=== PATIENT | female | born 1995 | race Caucasian/White ===

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

== ENCOUNTER 2019-07-12 09:18 | Emergency (ER) | payer BC, MEDICAID ==
[~2019-07-12] VITALS: Ht 152.4 cm; Wt 40.0 kg
[2019-07-12 09:25] VITALS: BP 104/76
--- NOTE | 2019-07-12 09:39 | NUR ---
DR. MURPHY EVALUATING PT AT BEDSIDE.
--- NOTE | 2019-07-12 09:41 | NUR ---
23F C/O RIGHT-SIDED LBP X 3 DAYS. DENIES INJURY, DYSURIA, FEVER/CHILLS, URGENCY, FREQUENCY. STATES HAS BEEN VOMITING FOR THE LAST 4 NIGHTS. STATES MILD NAUSEA AT THIS TIME. LUNGS CTAB. RRR. NORMOACTIVE BS. 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
--- NOTE | 2019-07-12 09:51 | NUR ---
DR. MURPHY SPEAKING WITH PT AT BEDSIDE
--- NOTE | 2019-07-12 10:20 | NUR ---
OBTAINED BLOOD DRAW.
--- NOTE | 2019-07-12 10:31 | NUR ---
Blood samples walked to lab.
[2019-07-12 10:39] LABS: BASOPHILS # (AUTO) 0.1 K/uL (0.00-0.22); BASOPHILS % (AUTO) 0.5 % (0.0-2.0); EOSINOPHILS % (AUTO) 0.5 % (0.0-4.0); HEMATOCRIT 38.8 % (36-48); HEMOGLOBIN 12.4 g/dL (12.0-16.0); LYMPHOCYTES % (AUTO) 20.2 % (20.5-51.1); MEAN CORPUSCULAR HEMOGLOBIN 24 pg (27-31); MEAN CORPUSCULAR HGB CONC 32 g/dL (33-37); MEAN CORPUSCULAR VOLUME 75.8 fL (80-94); MONOCYTES # (AUTO) 0.7 K/uL (0.8-1.0); MONOCYTES % (AUTO) 6.9 % (1.7-9.3); NEUTROPHILS # (AUTO) 7.1 K/uL (1.8-7.7); NEUTROPHILS % (AUTO) 71.9 % (42.2-75.2); PLATELET COUNT (AUTO) 216 K/uL (140-450); RED BLOOD CELL COUNT(AUTO) 5.11 MIL/uL (4.20-5.40); RED CELL DISTRIBUTION WIDTH 14.3 % (11.6-13.7); WHITE BLOOD COUNT (AUTO) 9.8 K/uL (4.8-10.8)
--- NOTE | 2019-07-12 10:42 | NUR ---
Ultrasound at bedside.
[2019-07-12 11:21] LABS: BILIRUBIN,URINE NEGATIVE (NEGATIVE); BLOOD, URINE TRACE-I (NEGATIVE); COLOR,URINE YELLOW (YELLOW); LEUKOCYTE ESTERASE ,URINE NEGATIVE (NEGATIVE); NITRITE, URINE NEGATIVE (NEGATIVE); PH,URINE 5.5 (5.0-9.0); UGLUCOSE NEGATIVE (NEGATIVE)
[2019-07-12 11:28] LABS: APPEARANCE,URINE SLIGHTLY HAZY (CLEAR); RBC,URINE 0-5 /HPF (0-5); WBC,URINE 0-5 /HPF (0-5)
--- NOTE | 2019-07-12 11:31 | NUR ---
PT RESTING IN BED, DENIES PAIN AT THIS TIME. FAMILY MEMBER AT BEDSIDE.
[2019-07-12 14:26] VITALS: BP 100/60
== END 2019-07-12 14:27 | disposition home or self-care (01) ==
LOC: MED 09:18
DX: O21.9 Vomiting of pregnancy, unspecified (principal); O26.891 Other specified pregnancy related conditions, first trimester; M54.5 Low back pain; R30.0 Dysuria; Z3A.01 Less than 8 weeks gestation of pregnancy
CPT/HCPCS: 36415; 76817; 81001; 81025; 84702; 85025; 99284; Q0092

== ENCOUNTER 2019-07-18 18:50 | Inpatient (IN) | payer MEDICAID, BC ==
[~2019-07-18] VITALS: Ht 152.4 cm; Wt 45.4 kg
[2019-07-18 19:00] VITALS: BP 102/74
[2019-07-18] MEDS ORDERED: METOCLOPRAMIDE 10 MG/2 ML INJ VIAL IVP ONE (20:35)
[2019-07-18] MEDS ORDERED: NACL 0.9% 1,000 ML IV ONE ×3 (20:35→22:35)
[2019-07-18 20:58] LABS: BASOPHILS % (AUTO) 0.4 % (0.0-2.0); EOSINOPHILS # (AUTO) 0.1 K/uL (0-0.4); EOSINOPHILS % (AUTO) 0.7 % (0.0-4.0); HEMATOCRIT 38.8 % (36-48); HEMOGLOBIN 12.5 g/dL (12.0-16.0); LYMPHOCYTES # (AUTO) 2.2 K/uL (2.5-16.5); MEAN CORPUSCULAR HEMOGLOBIN 25 pg (27-31); MEAN CORPUSCULAR HGB CONC 32 g/dL (33-37); MEAN CORPUSCULAR VOLUME 75.9 fL (80-94); MONOCYTES # (AUTO) 0.6 K/uL (0.8-1.0); MONOCYTES % (AUTO) 7.6 % (1.7-9.3); NEUTROPHILS # (AUTO) 4.8 K/uL (1.8-7.7); NEUTROPHILS % (AUTO) 62.3 % (42.2-75.2); PLATELET COUNT (AUTO) 229 K/uL (140-450); RED BLOOD CELL COUNT(AUTO) 5.11 MIL/uL (4.20-5.40); RED CELL DISTRIBUTION WIDTH 15.2 % (11.6-13.7); WHITE BLOOD COUNT (AUTO) 7.7 K/uL (4.8-10.8)
[2019-07-18 21:17] LABS: APPEARANCE,URINE CLEAR (CLEAR); BILIRUBIN,URINE NEGATIVE (NEGATIVE); BLOOD, URINE NEGATIVE (NEGATIVE); COLOR,URINE YELLOW (YELLOW); LEUKOCYTE ESTERASE ,URINE NEGATIVE (NEGATIVE); NITRITE, URINE NEGATIVE (NEGATIVE); PH,URINE 7.5 (5.0-9.0); UGLUCOSE NEGATIVE (NEGATIVE)
[2019-07-18 22:10] LABS: ALBUMIN 3.6 g/dL (3.4-5.0); ANION GAP 13.5 (8-16); CARBON DIOXIDE 24.5 mmol/L (21-32); CREATININE 0.7 mg/dL (0.6-1.3); TOTAL BILIRUBIN 0.2 mg/dL (0.0-1.0)
[2019-07-18] MEDS ORDERED: LACTATED RINGERS 1,000 ML IV ONE (22:40)
[2019-07-18] MEDS ORDERED: ONDANSETRON 4 MG/2 ML VIAL IVP PRN (22:45)
[2019-07-18] MEDS ORDERED: ACETAMINOPHEN 325 MG TAB PO PRN (22:45)
[2019-07-19] VITALS: BP 104/67
[2019-07-19] MEDS ORDERED: MORPHINE SULFATE 5 MG/ML VIAL IVP PRN (00:10)
[2019-07-19 02:11] LABS: BARBITURATE, URINE NEG. ng/ml (NEG <=200); BENZODIAZEPINE, URINE NEG. ng/mL (NEG <=200); CANNABINOID, URINE NEG. ng/mL (NEG <=50); COCAINE, URINE NEG. ng/mL (NEG <=300); OPIATE, URINE NEG. ng/mL (NEG <=2000); PHENCYCLIDINE SCREEN,URINE NEG. ng/mL (NEG <=25)
[2019-07-19 08:55] VITALS: BP 92/57
[2019-07-19 10:43] LABS: ANION GAP 13.4 (8-16); CARBON DIOXIDE 23.2 mmol/L (21-32); CREATININE 0.6 mg/dL (0.6-1.3); POTASSIUM 3.6 mmol/L (3.5-5.1)
[2019-07-19 10:59] LABS: BASOPHILS % (AUTO) 0.4 % (0.0-2.0); EOSINOPHILS % (AUTO) 0.5 % (0.0-4.0); HEMATOCRIT 36.1 % (36-48); HEMOGLOBIN 11.7 g/dL (12.0-16.0); LYMPHOCYTES # (AUTO) 2.1 K/uL (2.5-16.5); MEAN CORPUSCULAR HEMOGLOBIN 24 pg (27-31); MEAN CORPUSCULAR HGB CONC 32 g/dL (33-37); MEAN CORPUSCULAR VOLUME 75.8 fL (80-94); MONOCYTES # (AUTO) 0.6 K/uL (0.8-1.0); NEUTROPHILS # (AUTO) 5.7 K/uL (1.8-7.7); NEUTROPHILS % (AUTO) 67.1 % (42.2-75.2); PLATELET COUNT (AUTO) 203 K/uL (140-450); RED BLOOD CELL COUNT(AUTO) 4.77 MIL/uL (4.20-5.40); RED CELL DISTRIBUTION WIDTH 14.7 % (11.6-13.7); WHITE BLOOD COUNT (AUTO) 8.4 K/uL (4.8-10.8)
[2019-07-19 13:28] VITALS: BP 92/57
[2019-07-23 20:23] LABS: CHLAMYDIA TRACHOMATIS AMP DNA POSITIVE (NEGATIVE)
== END 2019-07-19 13:55 | disposition home or self-care (01) | DRG 833 ==
LOC: MED 18:50 → MTU 22:41
PROVIDERS: ADMIT Obstetrics & Gynecology; ATTEND Obstetrics & Gynecology
DX: O00.91 Unspecified ectopic pregnancy with intrauterine pregnancy (principal)
CPT/HCPCS: 36415; 76770; 76801; 76817; 80048; 80053; 80305; 81003; 83690; 84702; 85025; 86886; 86900; 86901; 87081; 87086; 87491; 96361; 96374; 99285; C1758; J2765; J7030; J7120; Q0092

== ENCOUNTER 2019-08-30 14:28 | Emergency (ER) | payer BC, MEDICAID ==
[~2019-08-30] VITALS: Ht 152.4 cm; Wt 39.5 kg
[2019-08-30 14:37] VITALS: BP 100/61
--- NOTE | 2019-08-30 14:50 | NUR ---
PT AMBULATED TO BED 02.
--- NOTE | 2019-08-30 15:03 | NUR ---
PATIENT PRESENTS TO ED WITH 8/10 SHARP RLQ PAIN RADIATING TO THE BACK. PT ALSO COMPLAINS OF NAUSEA AND VOMITING. LBM: 08/29/2019. PT IS 13 WEEKS , LMP: JUN 09, 2019, . ABDOMEN FLAT, NORMOACTIVE BS. VSS; PATIENT POSITIONED FOR COMFORT; HOB ELEVATED; BEDRAILS UP X2; BED DOWN. ER MD MADE AWARE OF PT STATUS. NO PMH. NO MEDS. NO ALLERGIES.
--- NOTE | 2019-08-30 15:15 | NUR ---
CHARTED ON WRONG PATIENT.
--- NOTE | 2019-08-30 15:15 | NUR ---
Rickie haynes in ED - 08/30/19 at 1651 by [facility] PT TEMP 97.T AT THIS TIME. MEDS GIVEN AND COOLING MEASUREIN PLACE. WILL CONTINUE TO MONITOR PT.
--- NOTE | 2019-08-30 17:15 | NUR ---
TALKING TO PT AT THE BEDSIDE. PT STABLE.
[2019-08-30 17:30] VITALS: BP 101/61
--- NOTE | 2019-08-30 17:30 | NUR ---
Patient discharged with v/s stable. Written and verbal after care instructions given and explained. Patient alert, oriented and verbalized understanding of instructions. Ambulatory with steady gait. All questions addressed prior to discharge. ID band removed. Patient advised to follow up with PMD. Rx of MACROBID AND ZOFRAN given. Patient educated on indication of medication including possible reaction and side effects. Opportunity to ask questions provided and answered. [facility] CONSULT ADVISED.
== END 2019-08-30 17:30 | disposition home or self-care (01) ==
LOC: MED 14:28
DX: O23.41 Unspecified infection of urinary tract in pregnancy, first trimester (principal); Z37.9 Outcome of delivery, unspecified; R11.2 Nausea with vomiting, unspecified
CPT/HCPCS: 81002; 81025; 99283

== ENCOUNTER 2019-09-15 11:12 | Emergency (ER) | payer BC, MEDICAID ==
[~2019-09-15] VITALS: Ht 154.9 cm; Wt 42.2 kg
[2019-09-15 11:22] VITALS: BP 110/61
--- NOTE | 2019-09-15 11:29 | NUR ---
A0 LMP 06/09/19 12 WKS PREG C/O ANXIETY SYMPTOMS STARTING ABOUT 1 HR AGO. PER PT SHE IS FEELING TINGLING IN BUE AND IS FEELING VERY ANXIOUS. lung sounds clear all throughout. pt states she had v episodes. no abd pain. bs active, flat and soft. vss. HX: ANXIETY RX: XANAX - NO LONGER TAKING
[2019-09-15 12:08] VITALS: BP 115/60
--- NOTE | 2019-09-15 12:08 | NUR ---
Patient discharged with v/s stable. Written and verbal after care instructions given and explained. Patient alert, oriented and verbalized understanding of instructions. Ambulatory with steady gait. All questions addressed prior to discharge. ID band removed. Patient advised to follow up with PMD. Rx of Benadryl 25mg given. Patient educated on indication of medication including possible reaction and side effects. Opportunity to ask questions provided and answered.
== END 2019-09-15 12:08 | disposition home or self-care (01) ==
LOC: MED 11:12
DX: O99.341 Other mental disorders complicating pregnancy, first trimester (principal); F41.9 Anxiety disorder, unspecified; Z3A.11 11 weeks gestation of pregnancy
CPT/HCPCS: 99283

== ENCOUNTER 2019-10-17 18:11 | Emergency (ER) | payer BC, MEDICAID ==
[~2019-10-17] VITALS: Ht 152.4 cm; Wt 40.8 kg
[2019-10-17 18:47] VITALS: BP 109/65
--- NOTE | 2019-10-17 18:50 | NUR ---
TO LOBBY A/W BED AMBULATORY
--- NOTE | 2019-10-17 20:00 | NUR ---
PATIENT RECHECKED. STATES SHE IS STILL VOMITING BUT NOTHING IS COMING UP ANYMORE. VSS. PATIENT AAO, STABLE. AMB WITH STEADY GAIT BACK TO LOBBY.
--- NOTE | 2019-10-17 20:15 | NUR ---
PATIENT AMB TO BED 11
--- NOTE | 2019-10-17 20:20 | NUR ---
23 YO F BIB DAD. PT IS 17 WEEKS . WAS DX WITH UTI X 1 MONTH AGO, STARTED ABX YESTERDAY. PT STATES "I DIDN'T WANT TO TAKE IT BECAUSE I DIDN'T FEEL THE PAIN ANYMORE BUT YESTERDAY I STARTED FEELING SHARP PAIN WHEN I PEED SO I TOOK THE ABX." REPORTS FEVER, N/V SINCE LAST NIGHT. PT STATES "I ALSO WANT TO MAKE SURE THE BABY IS OK BECAUSE I HAVEN'T FELT ANY MOVEMENT SINCE LAST NIGHT." ALSO C/O 07/31 ACHING LOWER BACK PAIN RADIATING DOWN LEFT LEG. PMH-- RX-- MACROBID
[2019-10-17] MEDS ORDERED: NACL 0.9% 1,000 ML IV ONE (20:55)
[2019-10-17 21:55] LABS: BASOPHILS % (AUTO) 0.1 % (0.0-2.0); HEMATOCRIT 33.8 % (36-48); LYMPHOCYTES # (AUTO) 0.4 K/uL (2.5-16.5); LYMPHOCYTES % (AUTO) 3.8 % (20.5-51.1); MEAN CORPUSCULAR HEMOGLOBIN 26 pg (27-31); MEAN CORPUSCULAR HGB CONC 32 g/dL (33-37); MEAN CORPUSCULAR VOLUME 78.8 fL (80-94); MONOCYTES # (AUTO) 0.7 K/uL (0.8-1.0); NEUTROPHILS # (AUTO) 8.2 K/uL (1.8-7.7); NEUTROPHILS % (AUTO) 88.1 % (42.2-75.2); PLATELET COUNT (AUTO) 182 K/uL (140-450); RED BLOOD CELL COUNT(AUTO) 4.29 MIL/uL (4.20-5.40); RED CELL DISTRIBUTION WIDTH 14.5 % (11.6-13.7); WHITE BLOOD COUNT (AUTO) 9.3 K/uL (4.8-10.8)
[2019-10-17 22:07] LABS: APPEARANCE,URINE CLEAR (CLEAR); BILIRUBIN,URINE NEGATIVE (NEGATIVE); BLOOD, URINE TRACE-I (NEGATIVE); COLOR,URINE YELLOW (YELLOW); LEUKOCYTE ESTERASE ,URINE NEGATIVE (NEGATIVE); NITRITE, URINE NEGATIVE (NEGATIVE); PH,URINE 6.5 (5.0-9.0); UGLUCOSE NEGATIVE (NEGATIVE)
[2019-10-17 22:09] LABS: ANION GAP 14.5 (8-16); CARBON DIOXIDE 24.1 mmol/L (21-32); CREATININE 0.7 mg/dL (0.6-1.3); POTASSIUM 3.6 mmol/L (3.5-5.1)
--- NOTE | 2019-10-17 22:09 | NUR ---
DR. CHIDI PINK AT BED.
[2019-10-17 22:19] LABS: RBC,URINE 0-5 /HPF (0-5); WBC,URINE 0-5 /HPF (0-5)
[2019-10-17 22:20] LABS: YEAST,URINE Rare /HPF (None Seen)
--- NOTE | 2019-10-17 22:28 | NUR ---
BOLUS COMPLETED. PT STATES SHE FEELS A LITTLE BIT BETTER.
--- NOTE | 2019-10-17 22:47 | NUR ---
DR. CHIDI PINK AT [facility]. Addendum: 10/17/19 at 2247 by [facility].
[2019-10-17 23:01] VITALS: BP 91/51
--- NOTE | 2019-10-17 23:01 | NUR ---
Patient discharged with v/s stable. Written and verbal after care instructions given and explained. Patient alert, oriented and verbalized understanding of instructions. Ambulatory with steady gait. All questions addressed prior to discharge. ID band removed. Patient advised to follow up with PMD. Rx of Relenza and Macrobid given. Patient educated on indication of medication including possible reaction and side effects. Opportunity to ask questions provided and answered.
== END 2019-10-17 23:01 | disposition home or self-care (01) ==
LOC: MED 18:11
DX: O23.32 Infections of other parts of urinary tract in pregnancy, second trimester (principal); J11.1 Influenza due to unidentified influenza virus with other respiratory manifestations; Z3A.16 16 weeks gestation of pregnancy
CPT/HCPCS: 36415; 80048; 81001; 84702; 85025; 86900; 86901; 99283; J7030

== ENCOUNTER 2019-11-03 11:47 | Emergency (ER) | payer BC, MEDICAID ==
[~2019-11-03] VITALS: Ht 152.4 cm; Wt 40.8 kg
[2019-11-03 11:59] VITALS: BP 115/63
--- NOTE | 2019-11-03 12:02 | NUR ---
PT AMBULATED TO LOBBY
--- NOTE | 2019-11-03 14:54 | NUR ---
PT LEFT WITHOUT BEING SEEN
== END 2019-11-03 14:54 | disposition left against medical advice (07) ==
LOC: MED 11:47
DX: O26.892 Other specified pregnancy related conditions, second trimester (principal); R10.31 Right lower quadrant pain; Z53.21 Procedure and treatment not carried out due to patient leaving prior to being seen by health care provider

== ENCOUNTER 2021-06-07 15:32 | Emergency (ER) | payer BC, MEDICAID ==
[~2021-06-07] VITALS: Ht 152.4 cm; Wt 56.2 kg
[2021-06-07 16:05] VITALS: BP 101/69
[2021-06-07] MEDS ORDERED: CEPH-588 PO (18:21)
--- NOTE | 2021-06-07 18:25 | NUR ---
Patient discharged with v/s stable. Written and verbal after care instructions about urinary tract infection given and explained. Patient alert, oriented and verbalized understanding of instructions. Ambulatory with steady gait. All questions addressed prior to discharge. ID band removed. Patient advised to follow up with PMD. Rx of keflex given. Patient educated on indication of medication including possible reaction and side effects. Opportunity to ask questions provided and answered.
[2021-06-07 18:55] VITALS: BP 101/69
== END 2021-06-07 18:25 | disposition home or self-care (01) ==
LOC: MED 15:32
DX: N39.0 Urinary tract infection, site not specified (principal)
CPT/HCPCS: 81002; 81025; 99283

== ENCOUNTER 2023-10-08 20:38 | Emergency (ER) | payer MEDICAID, OTHER ==
[~2023-10-08] VITALS: Ht 152.4 cm; Wt 43.5 kg
[~2023-10-08 20:38] MED LIST: CEPH-588 PO
[2023-10-08 21:03] VITALS: BP 104/68; PULSE 94; RESP 16; TEMP 98.5; O2SAT 99
[2023-10-08] MEDS ORDERED: ACETAMINOPHEN 325 MG TAB PO ONE (22:25)
[2023-10-08] MEDS ORDERED: NAPR-1704 PO (22:41)
== END 2023-10-08 23:15 | disposition home or self-care (01) ==
LOC: MED 20:38
DX: S20.214A Contusion of middle front wall of thorax, initial encounter (principal); Z79.899 Other long term (current) drug therapy; V49.88XA Car occupant (driver) (passenger) injured in other specified transport accidents, initial encounter; Y93.89 Activity, other specified; Y92.89 Other specified places as the place of occurrence of the external cause; Y99.8 Other external cause status
CPT/HCPCS: 71046; 99283